=== PATIENT | male | born 1960 | race Caucasian/White ===

== ENCOUNTER 2024-04-23 15:05 | Emergency (ER) | payer SELFPAY | END 2024-04-23 17:00 | disposition home or self-care (01) | LOC: NAV ERS 15:05 | DX: M79.18 Myalgia, other site (principal); I10 Essential (primary) hypertension; E78.00 Pure hypercholesterolemia, unspecified; Z79.02 Long term (current) use of antithrombotics/antiplatelets; Z79.899 Other long term (current) drug therapy | CPT/HCPCS: 99283 ==